=== PATIENT | female | born 1975 | race Caucasian/White ===

== ENCOUNTER 2020-12-29 18:46 | Emergency (ER) | payer OTHER, SELFPAY ==
--- NOTE | ~2020-12-29 | CT_ITS ---
EXAMINATION: CTA chest PE protocol DATE: 12/29/2020 23:34 INDICATION: Shortness of breath, intermittent palpitations, dizziness, cough, hypertension. TECHNIQUE: Computed tomography angiography (CTA) of the chest was performed with 100 mL Omnipaque-350 intravenous contrast timed to evaluate the pulmonary arteries. Coronal maximum intensity projection 3D-reconstructions were created by the technologist. Automated exposure control and iterative reconst ruction technique were employed. Exam dose: 1010.43 mGy-cm total exam DLP. COMPARISON: None. FINDINGS: There is diagnostic contrast enhancement of the pulmonary arteries and no apparent pulmonar y embolism. Mild thoracic aortic aneurysm, the aortic arch measuring up to 3.2 cm diameter. Cardiomegaly. No hilar or mediastinal mass lesion or lymphadenopathy. There is discoid atelectasis or scarring in the left lower lobe. No pulmonary infiltrate or consolida tion or pulmonary mass lesion is evident. Small sliding hiatal hernia. IMPRESSION: No evidence of pulmonary embolism Cardiomegaly Mild thoracic aortic aneurysm Small sliding hiatal hernia Reviewed, dictated and finalized at [facility] Reviewed, dictated and finalized at [facility].
--- NOTE | ~2020-12-29 | XR_ITS ---
XR chest 2V DATE: 12/29/2020 19:35 INDICATION: Intermittent palpitations. Shortness of breath. Dizziness, cough. Hypertension. TECHNIQUE: PA and lateral views COMPARISON: None FINDINGS: There is cardiomegaly. No pulmonary vascular congestion or pulmonary infiltrate or consolid ation, pleural effusion or pneumothorax is detected. No hilar or mediastinal enlargement. Osteopenia. IMPRESSION: Cardiomegaly Reviewed, dictated and finalized at [facility]. IMPRESSION: Cardiomegaly
[2020-12-29 19:03] VITALS: BP 182/93; PULSE 118; RESP 16; TEMP 36.7; O2SAT 98
--- NOTE | 2020-12-29 19:10 | ECG_ITS ---
Measurements Intervals [place] Rate: 115 P: 18 WI: 164 QRS: 66 QRSD: 87 T: 32 QT: 305 QTc: 422 Interpretive Statements SINUS TACHYCARDIA NONSPECIFIC T-WAVE ABNORMALITY- INFERIOR LEADS BASELINE WANDER- II, III, AVF ABNORMAL ECG Electronically Signed On 12-30-2020 8:45:47 CDT by Refugio Arvizu D.O.
[2020-12-29 19:34] LABS: Basophils Absolute Auto 0.1 K/mm3 (0.0-0.1); Basophils Percent Auto 0.5 % (0.2-1.2); Eosinophils Absolute Auto 0.2 K/mm3 (0-0.3); Eosinophils Percent Auto 1.7 % (0-4.4); Hematocrit 36.9 % (37.0-47.0); Immature Granulocyte Absolute 0.05 K/mm3 (0.00-0.031); Immature Granulocyte Percent A 0.4 % (0-0.5); Lymphocytes Absolute Auto 2.85 K/mm3 (0.9-3.2); Lymphocytes Percent Auto 21.6 % (18.3-44.2); Mean Corpuscular HGB Conc 32.5 g/dl (32-36); Mean Corpuscular Hemoglobin 26.7 pg (26-34); Mean Corpuscular Volume 82.2 fl (80-100); Mean Platelet Volume 10.5 fl (7.4-10.4); Monocytes Absolute Auto 1.3 K/mm3 (0.1-0.6); Monocytes Percent Auto 9.6 % (2.6-8.5); Neutrophils Absolute Auto 8.8 K/mm3 (1.3-6.7); Neutrophils Percent Auto 66.2 % (45.5-73.1); Platelet Count Result 386 k/mm3 (150-375); Red Blood Count 4.49 M/mm3 (4.2-5.4); Red Cell Distribution Width 14.3 % (11.5-14.5); White Blood Count 13.2 K/mm3 (4.5-10.0)
[2020-12-29 20:08] LABS: Alveolar/Arterial O2 Gradient 12.3 mmHg; Base Excess ABG 0.8 mEq/l (+/-2.0); Device ROOM AIR; Fractional Inspired Oxygen 21 %; HCO3 ABG 24.7 mEq/l (22.0-26.0); Modified Allen's Test Pass; Oxygen Content ABG 17.1 %vol (16.0-22.0); Oxygen Saturation ABG 97.4 % (95.0-100.0); Oxyhemoglobin 96.6 % THb (90.0-100.0); PCO2 ABG 37.1 mmHg (35.0-45.0); PO2 FiO2 Ratio Arterial Blood 4.43 %; Site Drawn RIGHT RADIAL; Total Hemoglobin 12.5 g/dL (12.0-18.0); pH ABG 7.441 (7.350-7.450)
--- NOTE | 2020-12-29 20:50 | ED.ARRPALP ---
HPI - Arrhythmia/Palpitations General Chief Complaint: Arrhythmia/Palpitations Stated Complaint: palpitations Time Seen by Provider: 12/29/20 19:18 Source: patient and RN notes reviewed Mode of arrival: ambulatory History of Present Illness HPI narrative: Patient is 45 years old white female presents with palpitation started earlier today, intermittent, associated with trouble breathing sometimes. Patient had pulse oximetry at that time and noticed that her heart rate dropped down to 50s. Patient denies any fever, chills, nausea, vomiting, chest pain, headache, back pain, leg pain or swelling. Last fluttering feeling was half an hour prior to arrival to the emergency room. Patient did not experience any fluttering since arrival until now. Patient reports possible stress lately. History of hypertension and losartan 5 mg once a day. Blood pressure on arrival is elevated 182/93 when I went see the patient was 156/93. Related Data Home Medications Medication Instructions Recorded Confirmed Imitrex 12/29/20 12/29/20 lisinopril 12/29/20 Allergies Allergy/AdvReac Type Severity Reaction Status Date / Time amoxicillin AdvReac Nausea and Verified 12/29/20 19:08 Vomiting Sulfa (Sulfonamide AdvReac Nausea Verified 12/29/20 19:08 Antibiotics) Review of Systems Review of Systems: Narrative: CONSTITUTIONAL: Denies fever, chills, or sweats. EYES: Denies visual changes, redness, or discharge. ENT: Denies rhinorrhea, congestion, sore throat, or otalgia. CARDIOVASCULAR: Denies chest pain, palpitations, or edema. RESPIRATORY: Denies cough or dyspnea. GASTROINTESTINAL: Denies abdominal pain, nausea, vomiting, or diarrhea. GENITOURINARY: Denies dysuria or hematuria. SKIN: Denies rash or itching. MUSCULOSKELETAL: Denies back pain, joint pain, or myalgia. NEUROLOGIC: Denies headache, numbness, or weakness. PSYCHIATRIC: Denies anxiety or depression. Exam Narrative: Exam Narrative: General appearance: Well-developed, well-nourished, morbidly obese, looks comfortable Skin: Normal color Head: Normocephalic, nontraumatic Eyes: Clear conjunctiva ENT: Oropharynx normal, ears normal, nose normal Neck: Supple, nontender Chest and respiratory: Airway patent, no respiratory distress, no accessory muscle use Heart: Regular rate/rhythm Abdomen: Soft, nontender, no organomegaly, quiet bowel sounds Vascular: Normal peripheral pulses, normal capillary refill. Musculoskeletal: Normal range of motion, nontender back Neurologic: Alert and oriented ?3, [employer] is normal as tested, no gross motor deficit Course Course Emergency Course: Stable Vital Signs Vital signs: Vital Signs Temperature 36.7 C 12/29/20 19:03 Pulse Rate 118 H 12/29/20 19:03 Respiratory Rate 16 12/29/20 19:03 Blood Pressure 182/93 H 12/29/20 19:03 Pulse Oximetry 98 12/29/20 19:03 Temperature 36.7 C 12/29/20 19:03 Pulse Rate 106 H 12/29/20 21:06 Respiratory Rate 23 H 12/29/20 21:06 Blood Pressure 154/93 H 12/29/20 21:06 Pulse Oximetry 97 12/29/20 21:06 MDM - Arrhythmia/Palpitations MDM Narrative Medical decision making narrative: Palpitation Labs, ABG, ABG on room air ordered. Further plan to follow Differential diagnosis as below Differential Diagnosis Differential diagnosis: Likely palpitations, anxiety, sinus tachycardia and WPW (Pulmonary embolism, hyperthyroidism) Lab D
[2020-12-29 21:06] VITALS: BP 154/93; PULSE 102; PULSE 106; RESP 23; O2SAT 97
[2020-12-29] MEDS: METOPROLOL TARTRATE 25 MG TABLET PO (21:06)
[2020-12-29 22:10] LABS: Alanine Aminotransferase 14 U/L (4-35); Albumin Level 3.9 g/dL (3.5-5.1); Alkaline Phosphatase 112 U/L (38-126); Anion Gap 9 mmol/L (8-16); Aspartate Amino Transferase 19 U/L (14-36); Bilirubin,Total 0.4 mg/dL (0.2-1.3); Blood Urea Nitrogen 12 mg/dL (7-17); Calcium 9.2 mg/dL (8.4-10.2); Carbon Dioxide 23 mmol/L (22-30); Chloride 106 mmol/L (98-107); Estimated CRCL calculation 131 ml/min; Estimated Glomerular Filt Rate > 60; Glucose 122 mg/dL (65-105); Potassium 3.9 mmol/L (3.4-5.0); Sodium 138 mmol/L (137-145)
[2020-12-29 22:13] LABS: D Dimer 2.02 ug/mL (<0.48)
[2020-12-29 22:22] LABS: Troponin I < 0.012 ng/mL (0.000-0.034)
[2020-12-30 00:56] VITALS: BP 148/97; PULSE 103; RESP 18; TEMP 36.8; O2SAT 98
== END 2020-12-30 00:56 | disposition home or self-care (01) ==
PROVIDERS: Emergency Medicine; Emergency Provider Emergency Medicine; PCP Internal Medicine Geriatric Medicine
DX: R00.2 Palpitations (principal); R00.0 Tachycardia, unspecified
CPT/HCPCS: 36415; 36600; 71046; 71275; 80048; 80076; 82805; 84443; 84484; 85025; 85380; 93005; 99284; A9270; Q9967